=== PATIENT | male | born 1935 | race Caucasian/White ===

== ENCOUNTER 2017-08-30 13:40 | Inpatient (IN) | payer MEDICARE, OTHER ==
[~2017-08-30 13:40] MED LIST: Aspirin 81 mg CHEW TAB* 81 MG TAB.CHEW ONE; Heparin for STEMI(*) 5,000 UNITS/ML 1 ML VIAL IV ONE; Nitroglycerin TAB 0.4 MG* 0.4 MG TAB ONE; nitroGLYCERIN DRIP* 25,000 MCG/250 ML BTL ONE
[2017-08-30] MEDS ORDERED: NS 0.9% 1000 ML* 1,000 ML IV ONE (13:43)
[2017-08-30] MEDS ORDERED: Heparin for STEMI(*) 5,000 UNITS/ML 1 ML VIAL IV ONE (13:43)
[2017-08-30] MEDS ORDERED: fentaNYL* 50 MCG/ML 2 ML VIAL (100 MCG VIAL) ONE (14:01)
[2017-08-30] MEDS ORDERED: nitroGLYCERIN DRIP* 25,000 MCG/250 ML BTL ONE (14:01)
[2017-08-30] MEDS ORDERED: Lidocaine 1% INJ* 10 MG/ML 30 ML SDV ONE (14:01)
[2017-08-30] MEDS ORDERED: Heparin 2 UNITS/ML IVPREMIX* 3,000 ML IV ONE (14:01)
[2017-08-30 14:04] LABS: ABS Basophils 0.2 10^3/ul (0-0.2); ABS Eosinophils 0.1 10^3/ul (0-0.6); ABS Lymphocytes 2.9 10^3/ul (1.0-4.8); ABS Monocytes 0.8 10^3/ul (0-0.8); ABS Neutrophils 8.9 10^3/ul (1.5-7.7); ABS Nucleated RBC 0 10^3/ul; Eosinophil % 0.9 % (0-6); Hematocrit 45 % (42-52); Lymphocyte % 22.8 % (25-47); Mean Corpuscular HGB Conc 33 g/dl (31-36); Mean Corpuscular Hemoglobin 31 pg (27-31); Mean Corpuscular Volume 93 fL (80-94); Mean Platelet Volume 8.6 um3 (7.4-10.4); Nucleated Red Blood Cells % 0; Platelet Count 180 10^3/ul (150-450); Red Blood Count 4.82 10^6/ul (4.0-5.4); Red Cell Distribution Width 13 % (10.5-15); White Blood Count 12.9 10^3/ul (3.5-10.8)
[2017-08-30] MEDS ORDERED: Iohexol 350 (CONTRAST) 200 ML MDV IV ONE ×2 (14:04→14:19)
[2017-08-30] MEDS ORDERED: Heparin(*) 1000 UNIT/ML 10 ML VIAL CATH LAB IV ONE ×2 (14:06→14:51)
[2017-08-30] MEDS ORDERED: VERAPAMIL 2.5 MG/ML 2 ML VIAL ** 5 mg/2 ml ONE (14:06)
[2017-08-30] MEDS ORDERED: Midazolam* 1 MG/ML 10 ML VIAL (10 MG) ONE (14:11)
[2017-08-30 14:14] LABS: INR 0.94 (0.77-1.02)
[2017-08-30] MEDS ORDERED: Eptifibatide (*) 100 ML ONE (14:21)
[2017-08-30 14:22] LABS: EGFR Non-African American 44.7 (>60)
[2017-08-30] MEDS ORDERED: Iodixanol* (CONTRAST) 320 MG/ML 100 ML SDV ONE (14:26)
[2017-08-30] MEDS ORDERED: Ticagrelor* 90 MG TAB PO ONE (14:29)
[2017-08-30] MEDS ORDERED: NitroPRUSSide* 25 MG/ML 2 ML VIAL IVPB ONE (14:39)
[2017-08-30] MEDS ORDERED: Norepinephrine VIAL* 1 MG/ML 4 ML VIAL ONE (14:42)
[2017-08-30] MEDS ORDERED: Norepinephrine 16MCG/ML IVPRE* 4,000 MCG/250 ML BAG IV ONE (14:43)
[2017-08-30] MEDS ORDERED: Nitroglycerin TAB 0.4 MG* 0.4 MG TAB SL PRN (15:23)
[2017-08-30] MEDS ORDERED: Acetaminophen TAB* 325 MG PO PRN (15:30)
[2017-08-30] MEDS: Atorvastatin* 80 MG TAB PO SCH (16:19)
[2017-08-30] MEDS: Metoprolol Tartrate TAB* 25 MG PO SCH (16:20)
[2017-08-30] MEDS: Ticagrelor* 90 MG TAB PO SCH (21:25)
--- NOTE | 2017-08-30 22:25 | HP ---
HISTORY AND PHYSICAL: DATE OF ADMISSION: 08/30/17 PRIMARY CARE PHYSICIAN: Apparently none, as he has retired. HISTORY OF PRESENT ILLNESS: An 82-year-old male presenting to the ER with acute inferior wall ST-elevation infarct. The patient is a poor historian, he does not have family with him. He apparently had a stent placed at [facility] in 2006, the patient is unaware of the indication or the location or the type of stent. He does recall being without bleeding complications with antiplatelet therapy post-stenting for an unknown length of time. He is generally active. Apparently, for the past few days, he has not been "acting himself" according to the . Presumably, contacted by telephone by the ER. Today, he developed chest pain and was brought to the ER. EKG at 13:31 hours showed sinus rhythm, inferior wall ST-elevation infarct with reciprocal repolarization changes in I, aVL, V2. He received aspirin, sublingual nitroglycerin, apparently no Brilinta or heparin. He was brought to the slab puller, chest pain was much improved, but he still had ST elevation on the monitor. PAST MEDICAL HISTORY: History of hypertension according to the patient, thyroid condition. PRE-HOSPITAL MEDICATIONS: 1. Aspirin 81 mg daily. 2. Unknown thyroid medication. ALLERGIES: He denies medication allergies. FAMILY HISTORY: He denies family history of coronary artery disease. SOCIAL HISTORY: He denies smoking. He is . 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 HOSPITALITY RECRUITER: He denies history of TIA or CVA. GI: He denies history of bleeding or ulcers. Heme: No history of malignancy or anemia. Endocrine: He denies history of diabetes. Remainder of 14-point review all negative. PHYSICAL EXAMINATION GENERAL: He was somewhat vague in history and drowsy, but easily arousable without any neurological complaints. VITAL SIGNS: Initial vitals, ER, 134/88, pulse in the 60s, sinus rhythm. HEENT: Without xanthelasma, scleral injection, or jaundice. EOMs normal. Cranial nerves grossly intact. NECK: JVP normal. Carotids normal. No bruits. Upstroke probably normal. LUNGS: His lungs were clear to percussion and auscultation. CARDIAC: Tivoli not palpable, heart sounds relatively distant, normal S1, S2, he has a brief systolic ejection murmur consistent with aortic sclerosis. No diastolic murmur. No gallop. ABDOMEN: Soft, nontender. No bruit, aorta not palpable, liver not palpable. No masses. Femoral pulses normal. No bruits. EXTREMITIES: Radial pulses 2+. Pedal is palpable. No cyanosis, clubbing, or edema. SKIN: Warm and perfused. LABORATORY DATA: CBC notable for elevated white count of 12.9 with hemoglobin 15, platelet count 180,000. Chemistry panel returned while the patient was in the slab puller revealed creatinine of 1.5 without a prior value, random blood sugar 176. Troponin of 0.05. BNP normal at 53. Potassium 4.9. LDL 55. IMPRESSION: 1. Acute inferior wall ST-elevation infarct, Killip class I. He underwent emergent catheterization. By history, he has single-vessel disease, previously stented in 2006. He apparently does not have a primary care physician, does not have any cardiac followup. 2. History of hypertension. 3. History of thyroid disease, details unknown. [id number]/[facility] #: [id number] [facility] CENTERDiallo
[2017-08-31] MEDS: Metoprolol Tartrate TAB* 25 MG PO SCH ×2 (00:44→08:33)
[2017-08-31 06:36] LABS: EGFR Non-African American 54.7 (>60)
[2017-08-31] MEDS: Ticagrelor* 90 MG TAB PO SCH ×2 (08:33→20:33)
--- NOTE | 2017-08-31 09:25 | ECHO ---
Patient: JESSICA ANDERSON [facility] Rec#: [id number] : 1935 Date: 08/31/2017 Age: 82y Height: 170.18 cm / 67.0 in Weight: 73.48 kg / 161.9 lbs Sex: F BSA: 1.85 Room#: [facility] Admit Date#: 08/30/2017 Type: Inpatient Referring: Yadira Lopez MD Reading: Lucien Reyez MD Fly Raiser Lockstitch[facility] Tran[facility]horacic Echocardiogram Indication: S/P PCI, STEMI. BP: 144/82 HR: 57 Rhythm: Bradycardia Findings History: CAD s/p PCI 2006, s/p acute inferior STEMI with PCI 08/30/17. Technical Comments: The study quality is fair. Completed at 0815. Left Ventricle: The left ventricular chamber size is normal. Mild concentric left ventricular hypertrophy is observed. There is a prominent septal knuckle.up to 2.2 cm with mild LVOT turbulence but no significant obstruction. There is a focal wall motion abnormality present. There is mildly decreased left ventricular systolic function. The estimated ejection fraction is 40-45%. Abnormal left ventricular diastolic function is observed. Abnormal left ventricular diastolic filling is observed, consistent with impaired relaxation. The basal inferolateral, basal inferoseptal, mid inferolateral, apical lateral, and apical inferior wall segments are hypokinetic (score 2). The mid inferior, and mid inferoseptal wall segments are akinetic (score 3). The basal inferior wall segment is dyskinetic (score 4). Overall wallmotion score index is 1.75 Left Atrium: The left atrium is moderately dilated. Right Ventricle: Moderator Band present. The right ventricle is mildly dilated. The right ventricular global systolic function is low normal. Right Atrium: The right atrium is mildly dilated. Aortic Valve: The aortic valve is trileaflet. Moderate aortic leaflet calcification is visualized. Systolic excursion of the aortic valve cusps is reduced. There is a trace of aortic regurgitation. There is moderate aortic stenosis. The mean gradient of the aortic valve is 24.42 mmHg. The peak instantaneous gradient of the aortic valve is 47.11 mmHg. The aortic valve area, by peak velocities, is calculated at 1.1 cm2. The aortic valve area, by VTI's, is calculated at 1.1 cm2. Highest aortic valve velocity was acquired with Pedoff in apical position. Mitral Valve: There is mitral annular calcification. The mitral valve leaflets are mildly thickened. There is moderate mitral regurgitation. There is no evidence of mitral stenosis. Tricuspid Valve: The tricuspid valve leaflets are mildly thickened. There is trace to mild tricuspid regurgitation. The right ventricular systolic pressure is estimated at 26 mmHg. No pulmonary hypertension is noted. There is no tricuspid stenosis. Pulmonic Valve: The pulmonic valve appears thickened with good excursion. There is a trace pulmonic regurgitation. There is no pulmonic stenosis. Pericardium: There is no significant pericardial effusion. A pericardial fat pad is visualized. Aorta: There is mild dilatation of the ascending aorta. There is no dilatation of the aortic arch. The aortic root is normal in size. Pulmonary Artery: The main pulmonary artery appears normal. Venous: The inferior vena cava is dilated. There is a greater than 50% respiratory change in the inferior vena cava dimension. Summary: There was not any prior study for comparison. Conclusions Mild concentric left ventricular hypertrophy is observed. There is a prominent septal knuckle up to 2.2 cm with mild LVOT turbulence but no significant obstruction. There is mildly decreased left ventricular systolic function. The estimated ejection fraction is 40-45%. Abnormal left ventricular diastolic filling is observed, consistent with impaired relaxation. The left atrium is moderately dilated. The right ventricle is mildly dilated. The right ventricular global systolic function is low normal. There is moderate aortic stenosis. There is moderate mitral regurgitation. There is trace to mild tricuspid regurgitation. Measurements Name Value Normal Range RVIDd (AP) 2D 3.3 cm (0.9 - 2.6) RVDdMajor (2D) 4.5 cm (2.2 - 4.4) RAd ISD 4CH 4.6 cm (3.4 - 4.9) RA (A4C)W 4.8 cm (2.9 - 4.6) IVSd (2D) 1.1 cm (0.6 - 1) LVPWd (2D) 1.1 cm (0.6 - 1) LVIDd (2D) 4.6 cm (3.6 - 5.4) LVIDs (2D) 3.3 cm - LV FS (2D) 27 % (25 - 45) Aortic Annulus 2.1 cm (1.4 - 2.6) Ao root diameter (2D) 3.1 cm (2.1 - 3.5) Ascending Ao 3.6 cm (2.1 - 3.4) Aortic arch 2.2 cm (1.8 - 3.4) LA dimension (AP) 2D 4.4 cm (2.3 - 3.8) LAd ISD 4CH 5 cm (2.9 - 5.3) LA ISD 4CH W 4.5 cm (2.5 - 4.5) Name Value Normal Range LA ESV SP 4CH (A/L) 67 ml - LA ESV SP 2CH (A/L) 81 ml - LA ESV BP (A/L) 81 ml - LA ESV BP (A/L) index 44 ml/m2 - LA ESV SP 4CH (MOD) 54 ml - LA ESV SP 2CH (MOD) 79 ml - Name Value Normal Range MV E-wave Vmax 0.59 m/sec - MV deceleration time 283.9 msec - MV A-wave Vmax 1.09 m/sec - MV E:A ratio 0.54 ratio - LV septal e' Vmax 0.05 m/sec - LV lateral e' Vmax 0.07 m/sec - LV E:e' septal ratio 11.8 ratio - LV E:e' lateral ratio 8.43 ratio - Name Value Normal Range AV Vmax 3.4 m/sec - AV VTI 74.7 cm - AV peak gradient 47.11 mmHg - AV mean gradient 24.42 mmHg - LVOT diameter 2 cm - LVOT Vmax 1.2 m/sec - LVOT VTI 26.29 cm - LVOT peak gradient 5.67 mmHg - LVOT mean gradient 2.41 mmHg - DOI (VTI) 0.35 ratio - MARCY (continuity Vmax) 1.1 cm2 - MARCY (continuity VTI) 1.1 cm2 - RIVKA Vmax 0.53 m/sec - Name Value Normal Range MR Vmax 6.3 m/sec - MR VTI 230 cm - MR flow (PISA) 68.9 ml/sec - MR ERO 0.11 cm2 - MR PISA radius 0.5 cm - MR alias Vmax 38 cm/sec - Name Value Normal Range TR Vmax 2.1 m/sec - TR peak gradient 18 mmHg - RAP 8 mmHg - RVSP 26 mmHg - IVC diameter 2.2 cm - Name Value Normal Range PV Vmax 0.8 m/sec - PV peak gradient 2.79 mmHg - Wallmotion BAS Normal BA Normal BAL Normal ANDREY Hypokinetic BI Dyskinetic BIS Hypokinetic MAS Normal MA Normal MAL Normal MIL Hypokinetic NJ Akinetic MIS Akinetic Normal AA Normal AL Hypokinetic AI Hypokinetic APEX Normal
[2017-08-31] MEDS: Aspirin 81 mg CHEW TAB* 81 MG TAB.CHEW PO SCH (15:20)
[2017-08-31] MEDS: Atorvastatin* 80 MG TAB PO SCH (17:01)
[2017-08-31] MEDS ORDERED: Metoprolol Tartrate TAB* 25 MG PO SCH (21:00)
--- NOTE | 2017-08-31 21:14 | ED ---
Qian Salmeron Rebecca, scribed for Kaiden Velez MD on 08/30/17 at 1358 . HPI Chest Pain - HPI Summary HPI Summary: Pt is an 82 y/o M BIBA who presents to ED c/o CP. 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 At about 1215, he took 81 mg ASA and en route, EMS administered 3 NTG and 3x 81 mg ASA. Upon arrival, his pain has improved, ranked 2/10 on triage. Unknown time of last PO. PMHx HTN and [place] in 2006 with 2 stents placed. - History of Current Complaint Time Seen by Provider: 08/30/17 13:42 Hx Obtained From: Patient, EMS Onset/Duration: Started Hours Ago, Resolved Time of Onset: 11:00 Current Severity: Mild Pain Intensity: 2 Pain Scale Used: 0-10 Numeric Chest Pain Location: Mid Sternal Aggravating Factor(s): Nothing Alleviating Factor(s): NTG 123 - 3, EMS Tx - NTG and ASA Associated Signs and Symptoms: Positive: Chest Pain PMH/Surg Hx/FS Hx/Imm Hx Endocrine/Hematology History: Denies: Hx Diabetes Cardiovascular History: Reports: Hx Hypertension, Hx Myocardial Infarction Infectious Disease History: No Infectious Disease History: Denies: Traveled Outside the [place] in Last 30 Days - Family History Known Family History: Positive: Cardiac Disease, Hypertension - Social History Alcohol Use: Occasionally Smoking Status (MU): Never Smoked Tobacco Review of Systems Negative: Fever Positive: Chest Pain All Other Systems Reviewed And Are Negative: Yes Physical Exam - Summary Physical Exam Summary: VITAL SIGNS: Reviewed. GENERAL: Patient is an elderly and fragile male who is lying comfortable in the stretcher. Patient is not in any acute respiratory or pain distress. HEAD AND FACE: No signs of trauma. No ecchymosis, hematomas or skull depressions. No sinus tenderness. EYES: PERRLA, EOMI x 2, No injected conjunctiva, no nystagmus. EARS: Hearing grossly intact. Ear canals and tympanic membranes are within normal limits. MOUTH: Oropharynx within normal limits. NECK: Supple, trachea is midline, no adenopathy, no JVD, no carotid bruit, no c- spine tenderness, neck with full ROM. CHEST: Symmetric, no tenderness at palpation LUNGS: Clear to auscultation bilaterally. No wheezing or crackles. CVS: Regular rate and rhythm, S1 and S2 present, no gallops appreciated. Injection systolic murmur. ABDOMEN: Soft, non-tender. No signs of distention. No rebound no guarding, and no masses palpated. Bowel sounds are normal. EXTREMITIES: FROM in all major joints, no edema, no cyanosis or clubbing. NEURO: Alert and oriented x 3. No acute neurological deficits. Speech is normal and follows commands. SKIN: Dry and warm Triage Information Reviewed: Yes Vital Signs On Initial Exam: Initial Vitals Temp Pulse Resp BP Pulse Ox 97.2 F 53 18 134/88 94 08/30/17 13:44 08/30/17 13:44 08/30/17 13:44 08/30/17 13:44 08/30/17 13:44 Vital Signs Reviewed: Yes Diagnostics - Vital Signs Vital Signs Temp Pulse Resp BP Pulse Ox 08/30/17 13:44 97.2 F 53 18 134/88 94 - Laboratory Lab Statement: Any lab studies that have been ordered have been reviewed, and results considered in the medical decision making process. - EKG 1331 Cardiac Rate: Bradycardia - 57 bpm EKG Rhythm: Sinus Bradycardia EKG Interpretation: ST elevations in leads II, III, and aVF with reciprocal changes Chest Pain Course/Dx - Course Assessment/Plan: This patient is an 82-year-old male who presents to the emergency room with a chief complaint of having retrosternal chest pain. He reports that the pain started 2 hours ago. He took one aspirin and then ambulance right he was given 3 more aspirins a total of 324 mg and 3 nitroglycerin. The patient also was given IV fluids. At arrival to the emergency department his chest pain is improved, he is slightly hypotensive, the patient was given heparin. EKG shows ST elevations in leads II, III, and F the F with reciprocal changes. The STEMI alert was called. I discussed the case with Dr. Lopez who came and assessed the patient and he took the patient to the lab head. At this time the patient is hemodynamically stable. Blood test is not resulted at this point. The patient was admitted to that the symptoms services. - Diagnoses Provider Diagnoses: STEMI (ST elevation myocardial infarction) During the Visit The Following Alert/Code Occurred: STEMI - Called at 1337 - Provider Notifications Discussed Care Of Patient With: Marcis T Sodums Time Discussed With Above Provider: 13:40 Instructed by Provider To: Other - Will see the pt in the ED and take him to the public works laborer. Discharge - Sign-Out/Discharge Documenting (check all that apply): Discharge/Admit/Transfer - Admit - Discharge Plan Condition: Stable Disposition: ADMITTED TO [facility] - Billing Disposition and Condition Condition: STABLE Disposition: [facility] [place] The documentation as recorded by the Qian forrester Rebecca accurately reflects the service I personally performed and the decisions made by Agustin bryan Walter, MD.
[2017-09-01] MEDS ORDERED: Metoprolol Tartrate TAB* 25 MG PO ONE (04:00)
[2017-09-01 05:06] LABS: EGFR Non-African American 49.6 (>60)
[2017-09-01] MEDS: Levothyroxine TAB* 112 MCG TAB PO SCH (05:45)
[2017-09-01] MEDS: Metoprolol Tartrate TAB* 25 MG PO SCH ×2 (08:29→08:35)
[2017-09-01] MEDS: Aspirin 81 mg CHEW TAB* 81 MG TAB.CHEW PO SCH (08:29)
[2017-09-01] MEDS: Lisinopril TAB* 5 MG PO SCH ×2 (08:29→08:35)
[2017-09-01] MEDS: Ticagrelor* 90 MG TAB PO SCH (08:29)
[2017-09-01] MEDS ORDERED: Clopidogrel TAB* 300 MG PO ONE (09:40)
[2017-09-01] MEDS: Apixaban* 2.5 MG TAB PO SCH ×2 (10:29→21:14)
[2017-09-01] MEDS: Atorvastatin* 80 MG TAB PO SCH (16:56)
[2017-09-01] MEDS: Metoprolol Tartrate TAB* 50 mg PO SCH (19:56)
[2017-09-02 06:01] LABS: EGFR Non-African American 48.4 (>60)
[2017-09-02] MEDS: Levothyroxine TAB* 112 MCG TAB PO SCH (06:28)
[2017-09-02] MEDS ORDERED: Clopidogrel TAB* 75 MG PO SCH (09:00)
[2017-09-02] MEDS ORDERED: Metoprolol Tartrate TAB* 25 MG PO ONE (09:30)
[2017-09-02] MEDS: Metoprolol Tartrate TAB* 50 mg PO SCH (09:33)
[2017-09-02] MEDS: Apixaban* 2.5 MG TAB PO SCH (09:37)
[2017-09-02] MEDS: Aspirin 81 mg CHEW TAB* 81 MG TAB.CHEW PO SCH (09:37)
[2017-09-02] MEDS: Lisinopril TAB* 5 MG PO SCH (09:38)
[2017-09-02 11:18] VITALS: BP 94/64
--- NOTE | 2017-09-02 18:24 | DS ---
CC: Dr. Bonilla, [place] * DISCHARGE SUMMARY: DATE OF ADMISSION: 08/30/17 DATE OF DISCHARGE: 09/02/17 PRIMARY CARE PHYSICIAN: Dr. Bonilla in [place]. DISCHARGE DIAGNOSES: 1. Acute inferior wall ST-elevation infarct. 2. Hypertension. 3. Hypothyroidism. 4. Paroxysmal atrial fibrillation. 5. Aortic stenosis. 6. Chronic kidney disease, stage 3. CONDITION ON DISCHARGE: Stable. PROCEDURES: Cardiac cath; stent placement RCA, right radial access, 4.0 x 12 mm Synergy drug-eluting stent; IC Nipride, IV Integrilin; echocardiography. DISCHARGE INSTRUCTIONS: WOUND CARE: Shower only for 3 days. ACTIVITY: No strenuous exertion for 1 week, to walk for 30 minutes daily. Do not lift more than 10 pounds right hand for 2 days. FOLLOWUP: With [facility] as scheduled for next week in [place] [id number] Bonilla as before. To obtain followup medications from [facility] where he gets prescriptions filled. DISCHARGE MEDICATIONS: 1. Eliquis 2.5 mg b.i.d. 2. Aspirin 81 mg daily. 3. Plavix 75 mg daily. 4. Synthroid 112 mcg daily. 5. Lisinopril 5 mg daily. 6. Lopressor 25 mg b.i.d. 7. Nitroglycerin 0.4 sublingual p.r.n. HISTORY: See H and P. LABORATORY DATA: His CPK peaked at 1209, MB peaked at 220. Creatinine post PCI remained stable, today's creatinine is 1.4 with a normal potassium, BUN 32. TSH was normal at 1.37, free T4 minimally elevated at 1.39. EKG post infarct developed inferolateral T-wave inversion without Q-waves. HOSPITAL COURSE: He presented with an acute inferior ST-elevation infarct, underwent catheterization via the radial approach without complications. He was found to have single-vessel disease of the RCA with proximal RCA occlusion with a large thrombus burden. Previously placed LAD stent was patent. Circumflex had no stenosis. LV gram was not performed because of his renal insufficiency. The RCA was treated with aspiration thrombectomy, stented with a 4 x 12 Synergy drug- eluting stent, he received double bolus IV Integrilin without infusion because he had difficulty swallowing Brilinta lying supine on the cath table, he also received IC Nipride. He had evangelical of normal flow in the RCA, the apical segment of the PDA remained occluded after probing with some improvement in antegrade perfusion more distally. Subsequent echocardiogram reported EF of 40% to 45% with an inferoapical lateral wall motion abnormality. His hospital course was without any recurrence of chest pain, he had no heart failure symptoms. He had transient paroxysmal atrial fibrillation for approximately 24 hours, which was asymptomatic, rate was controlled with beta blockade. He tolerated low dose beta blockade with relatively soft blood pressures. He was restarted on his preadmission low dose lisinopril. Because of his paroxysmal atrial fibrillation, he was started on low dose Eliquis, Brilinta was switched to Plavix, he will continue aspirin. I anticipate as an outpatient he will be able to discontinue Eliquis if he has no recurrence of atrial fibrillation as there is no prior history of AF, and this occurred in an identifiable unique setting. He ambulated normally, was discharged with normal vitals, normal exam, unremarkable right radial puncture site. Most recent labs : Today BUN 26, creatinine 1.26. CBC on 08/30/17, hemoglobin 15, hematocrit 45 , platelet count normal. EKG on 09/01/17 showed atrial fibrillation, inferolateral T-wave inversion but no Q-waves, subsequently on telemetry he reverted to sinus rhythm. He was provided a 2-week supply of discharge meds from our pharmacy with the anticipation that he will [facility] He has a followup appointment with me in the office next week for wrist check. His echocardiogram also revealed a trileaflet aortic valve with moderate calcification, reduced excursion, mean gradient of 24, estimated valve orifice of 1.1. He had mitral annular calcification with reported moderate MR, which is not audible on auscultation. RV systolic pressure was normal. [id number]/[facility] #: [id number] [place]
[2017-09-02] MEDS ORDERED: Metoprolol Tartrate TAB* 25 MG PO SCH (21:00)
--- NOTE | 2017-09-08 09:42 | CATH ---
STENT REPORT: DATE OF PROCEDURE: 08/30/17 - ROOM #431 PRIMARY CARE PHYSICIAN: Dr. Bonilla in [place]. PROCEDURES: Bilateral selective coronary cineangiography, aspiration thrombectomy RCA, IC Nipride, double bolus IV Integrilin, stent placement RCA 4.0 x 12 Synergy drug-eluting stent. HISTORY: An 82-year-old male with prior remote LAD stent placement, presenting with inferior wall ST-elevation infarct. PROCEDURE ACCESS: Right radial artery sheath 6-F slender. MEDICATIONS: 1. Subcu lidocaine. 2. IV Versed. 3. IV fentanyl. 4. Radial cocktail with heparin 3000 units, nitroglycerin 300 mcg, verapamil 3 mg IA. 5. Heparin 3000 units IV, 4000 units IV. 6. IC Nipride 1000 mcg. 7. Versed 3 mg IV given inadvertently instead of heparin. DIAGNOSTIC CATHETER: 5F TIG4. GUIDING CATHETER: RCA 6F R4, wire 14 BMW which was used to perform aspiration thrombectomy of the proximal RCA because of the large thrombus, after which it was stented with a 4 x 12 Synergy drug-eluting stent, post dilated with a 4 x 12 NC balloon to 18 atmospheres 30 seconds. Left-sided pressures were recorded with the guide, LV gram was not performed because of renal insufficiency. HEMODYNAMICS: Initial BP 131/78, LV 135/11-23, with a 35 mm [id number]-papc pullback gradient. ANGIOGRAPHY: Left main: The left main is relatively long, has luminal irregularity, but no significant stenosis. LAD: The LAD is moderate, extends past the apex, there are previously placed mid LAD stents, just beyond a moderate diagonal. The LAD system has luminal irregularity, has no significant stenosis. Circumflex: The circumflex is moderate, not dominant with a single marginal branch which supplies the obtuse marginal, the circumflex has no significant stenosis. RCA: The RCA is dominant, is occluded few centimeters from the origin with a very large thrombus. After aspiration thrombectomy, stent placement, IC Nipride and double bolus IV Integrilin, the stented segment is widely patent, the RCA has NICO 3 flow, the very apical portion of the PDA is occluded, although perfusion improved after probing with a wire. CONCLUSION: 1. Single-vessel disease RCA with acute inferior wall ST-elevation infarct, successful revascularization with drug-eluting stent with aspiration thrombectomy, double bolus IV Integrilin and IC Nipride. Residual apical PDA occlusion in a short small caliber segment. 2. Patent previously placed LAD stent. 3. The patient in error received IV Versed instead of a dose of heparin without clinical sequelae. 4. Aortic stenosis by pullback gradient. 5. Successful right radial artery access. [id number]/[facility] #: [id number] [place]
== END 2017-09-02 13:25 | disposition home or self-care (01) | DRG 247 ==
LOC: ED 13:40 → ICU 15:25 → MEDTELE 08-31 16:44
PROVIDERS: ADMIT Internal Medicine Cardiovascular Disease; ATTEND Internal Medicine Cardiovascular Disease
PROC: 027034Z Dilation of Coronary Artery, One Artery with Drug-eluting Intraluminal Device, Percutaneous Approach (ICD-10-PCS; 2017-08-30)
PROC: 02C03ZZ Extirpation of Matter from Coronary Artery, One Artery, Percutaneous Approach (ICD-10-PCS; 2017-08-30)
PROC: B2111ZZ Fluoroscopy of Multiple Coronary Arteries using Low Osmolar Contrast (ICD-10-PCS; principal; 2017-08-30 14:00)
DX: I21.19 ST elevation (STEMI) myocardial infarction involving other coronary artery of inferior wall (principal); I48.0 Paroxysmal atrial fibrillation; E03.9 Hypothyroidism, unspecified; N18.3 Chronic kidney disease, stage 3 (moderate); I12.9 Hypertensive chronic kidney disease with stage 1 through stage 4 chronic kidney disease, or unspecified chronic kidney disease; I25.10 Atherosclerotic heart disease of native coronary artery without angina pectoris; I08.0 Rheumatic disorders of both mitral and aortic valves; I25.2 Old myocardial infarction; Z82.49 Family history of ischemic heart disease and other diseases of the circulatory system; Z72.89 Other problems related to lifestyle; Z79.02 Long term (current) use of antithrombotics/antiplatelets; Z79.01 Long term (current) use of anticoagulants; Z79.82 Long term (current) use of aspirin
CPT/HCPCS: 36415; 80048; 80053; 82550; 82553; 83721; 83880; 84439; 84443; 84484; 85025; 85610; 85730; 87641; 93005; 93306; 99283; A9270-GY; C1725; C1757; C1769; C1876; C1887; C9606-RC; J1327; J1644; J2250; J3010